=== PATIENT | female | born 1975 | race Two or more races ===

== ENCOUNTER 2019-03-04 00:39 | Emergency (ER) | payer SELFPAY ==
[~2019-03-04] VITALS: Ht 157.5 cm; Wt 90.0 kg
[2019-03-04] MEDS ORDERED: KETOROLAC 30 MG/1 ML ONE (01:25)
[2019-03-04] MEDS ORDERED: ONDANSETRON 2MG/ML, 2ML ONE (01:25)
[2019-03-04] MEDS ORDERED: MORPHINE SULFATE 4 MG/ML, 1ML ONE (01:25)
[2019-03-04] MEDS ORDERED: SODIUM CHLORIDE 0.9% 1,000ML IVBOLUS ONE (01:30)
[2019-03-04] MEDS ORDERED: KETOROLAC 30 MG/1 ML IVPush ONE (01:30)
[2019-03-04] MEDS ORDERED: morphine SULFATE 10 MG/ML, 1ML IVPush ONE (01:30)
[2019-03-04] MEDS ORDERED: ONDANSETRON 2MG/ML, 2ML IVPush ONE (01:30)
[2019-03-04] MEDS ORDERED: SODIUM CHLORIDE FLUSH 10ML SYR IVF ONE (01:30)
--- NOTE | 2019-03-04 01:38 | NUR ---
CT PENDING NEG. HCG.
[2019-03-04 01:39] LABS: BASOPHILS # (AUTO) 0.01 x10^3/uL (0-0.1); BASOPHILS % (AUTO) 0 % (0-1); EOSINOPHILS # (AUTO) 0.02 x10^3/uL (0-0.4); EOSINOPHILS % (AUTO) 0 % (1-7); LYMPHOCYTES # (AUTO) 2.04 x10^3/uL (1-3.4); LYMPHOCYTES % (AUTO) 14 % (22-44); MD NO; MEAN CORPUSCULAR HEMOGLOBIN 29.4 pg (27.0-34.8); MEAN CORPUSCULAR HGB CONC 33.2 g/dL (32.4-35.8); MEAN CORPUSCULAR VOLUME 88.7 fL (80-100); MEAN PLATELET VOLUME 7.6 fL (7.4-10.4); MONOCYTES % (AUTO) 4 % (2-9); NEUTROPHILS # (AUTO) 11.64 x10^3/uL (1.8-6.8); NEUTROPHILS % (AUTO) 82 % (42-75); PLATELET COUNT 366 x10^3/uL (130-400); RED BLOOD COUNT 4.42 x10^6/uL (3.82-5.3); RED CELL DISTRIBUTION WIDTH 12.7 % (9.6-15.2)
--- NOTE | 2019-03-04 01:46 | NUR ---
IV ESTABLISHED, PT MEDICATED PER EMAR. 5 RIGHTS ADDRESSED. FAMILY AT BEDSIDE. PT PROVIDED WITH BLANKET AND PILLOW.
[2019-03-04 01:54] LABS: ALBUMIN 3.6 g/dL (3.4-5.0); ANION GAP 9 mmol/L (5-15); CALCIUM 8.9 mg/dL (8.5-10.1); CHLORIDE 108 mmol/L (98-107)
[2019-03-04 01:57] LABS: ALANINE AMINOTRANSFERASE 26 U/L (12-78); ALKALINE PHOSPHATASE 57 U/L (45-117); BILIRUBIN,TOTAL 0.2 mg/dL (0.2-1.0); CREATININE 0.83 mg/dL (0.55-1.02); TOTAL PROTEIN 7.7 g/dL (6.4-8.2)
--- NOTE | 2019-03-04 02:30 | NUR ---
BREAK RN: STEPHANI COLLECTED AND SENT TO LAB. CT REPORTS THEY CAN'T TAKE PT. FOR CT UNTIL HCG COMES BACK. [facility] MADE AWARE OF THIS. VS UPDATED. FLUIDS RECONNECTED. FAMILY AT FOR SUPPORT. ALL SAFETY MEASURES MAINTAINED.
[2019-03-04 02:53] LABS: HCG UR SG 1.023 (1.003-1.030)
[2019-03-04 02:54] LABS: MICROSCOPIC AUTO
[2019-03-04 02:55] LABS: CULTURE INDICATED? YES
[2019-03-04 04:23] LABS: MICROSCOPIC AUTO
[2019-03-04 04:28] LABS: CULTURE INDICATED? YES
[2019-03-04 04:34] VITALS: BP 109/74
--- NOTE | 2019-03-04 04:34 | NUR ---
REY WINKLER DONE WALKED TO LAB.
--- NOTE | 2019-03-04 04:39 | NUR ---
PT CONTINUES TO DENY PAIN, AWAITING LAB RESULTS AT THIS TIME, WILL CONTINUE TO MONITOR.
[2019-03-04 05:00] LABS: MICROSCOPIC AUTO
[2019-03-04] MEDS ORDERED: TAMSULOSIN 0.4 MG CAP.ER.24H PO ONE (05:00)
[2019-03-04 05:03] LABS: CULTURE INDICATED? YES
[2019-03-04] MEDS ORDERED: TAMSULOSIN 0.4 MG CAP.ER.24H ONE (05:21)
--- NOTE | 2019-03-04 05:28 | NUR ---
PT MEDICATED PER EMAR. 5 RIGHTS ADDRESSED.
--- NOTE | 2019-03-04 05:28 | NUR ---
Patient/Caregiver given discharge instructions and they have confirmed that they understand the instructions. Patient ambulatory with steady gait.
== END 2019-03-04 05:30 | disposition home or self-care (01) ==
LOC: ED 04:00
DX: N20.0 Calculus of kidney (principal); D72.829 Elevated white blood cell count, unspecified
CPT/HCPCS: 36415; 74176; 80053; 81001; 81025; 83690; 85025; 87077; 87086; 96361; 96374; 96375; 99284; J1885; J2270; J2405; J7030